=== PATIENT | female | born 1975 | race Hispanic/Latino ===

== ENCOUNTER → 2023-08-17 | Outpatient (CLI) | payer OTHER | END | disposition home or self-care (01) | LOC: RAH 14:44 | PROVIDERS: ATTEND Nurse Practitioner Adult Health | DX: E04.9 Nontoxic goiter, unspecified (principal) | CPT/HCPCS: 76536 ==

== ENCOUNTER → 2023-09-08 | Outpatient (CLI) | payer OTHER | END | disposition home or self-care (01) | LOC: RAH 11:37 | PROVIDERS: ATTEND Obstetrics & Gynecology | DX: Z12.31 Encounter for screening mammogram for malignant neoplasm of breast (principal) | CPT/HCPCS: 77067 ==

== ENCOUNTER → 2023-10-15 | Outpatient (CLI) | payer OTHER ==
[~2023-10-15] MED LIST: GADOTERATE MEGLUMINE 10 MMOL/20 ML VIAL IV ONE
== END | disposition home or self-care (01) ==
LOC: RAH 07:23
PROVIDERS: ATTEND Obstetrics & Gynecology
DX: N60.02 Solitary cyst of left breast (principal); N60.01 Solitary cyst of right breast; R92.343 Mammographic extreme density, bilateral breasts
CPT/HCPCS: 77049; A9575

== ENCOUNTER → 2023-11-17 | Outpatient (CLI) | payer OTHER ==
[2023-11-17 09:37] LABS: INR <= 0.93 (0.85-1.15); PROTHROMBIN TIME 10.8 SEC (9.6-11.6)
== END | disposition home or self-care (01) ==
LOC: RAH 08:28
PROVIDERS: ATTEND Obstetrics & Gynecology
DX: N60.01 Solitary cyst of right breast (principal); N60.02 Solitary cyst of left breast; N95.2 Postmenopausal atrophic vaginitis; N60.19 Diffuse cystic mastopathy of unspecified breast; N39.42 Incontinence without sensory awareness; R92.343 Mammographic extreme density, bilateral breasts; Z79.01 Long term (current) use of anticoagulants; Z79.899 Other long term (current) drug therapy; Z82.49 Family history of ischemic heart disease and other diseases of the circulatory system; Z83.42 Family history of familial hypercholesterolemia; Z82.3 Family history of stroke; Z98.890 Other specified postprocedural states; Z90.89 Acquired absence of other organs; Z90.710 Acquired absence of both cervix and uterus; Z79.890 Hormone replacement therapy
CPT/HCPCS: 19000; 19001; 36415; 85610; 85730; 88305; 88312

== ENCOUNTER → 2024-09-11 | Outpatient (CLI) | payer OTHER ==
--- NOTE | 2024-09-12 10:21 | HMCIMG ---
Exam Type: MAMMO SCREENING BILATERAL Clinical Information: ANNUAL SCREENING Comparison: August 21, 2023 Technique: Bilateral mammogram with CAD was performed with CC and MLO projections. FINDINGS: Breast parenchyma is heterogeneously dense which lowers the sensitivity of the mammographic examination. No dominant mass or suspicious microcalcification identified. There is no nipple retraction or skin thickening. Benign-appearing calcifications are seen. CAD shows no worrisome regions. IMPRESSION: 1. No mammographic signs of malignancy. 2. Routine follow-up recommended. CATEGORY 2: BENIGN FINDINGS Note: A negative x-ray should not delay biopsy if a dominant or clinically suspicious mass is present, since 8-10% of cancers are not identified by mammography. Dense breasts may obscure an underlying neoplasm.
== END | disposition home or self-care (01) ==
LOC: RAH 15:42
PROVIDERS: ATTEND Obstetrics & Gynecology
DX: Z12.31 Encounter for screening mammogram for malignant neoplasm of breast (principal); R92.333 Mammographic heterogeneous density, bilateral breasts
CPT/HCPCS: 77067

== ENCOUNTER → 2024-12-20 | Outpatient (CLI) | payer OTHER ==
[2024-12-20 07:04] LABS: BASOPHILS # (AUTO) 0.05 K/uL (0.00-0.20); BASOPHILS % (AUTO) 0.8 % (0.0-5.0); EOSINOPHILS # (AUTO) 0.14 K/uL (0.00-0.70); EOSINOPHILS % (AUTO) 2.3 % (0.0-8.0); HEMATOCRIT 38.7 % (36-48); IMMATURE GRANULOCYTE ABSOLUTE 0.01 K/uL (0-1); LYMPHOCYTES # (AUTO) 2.5 K/uL (1.0-4.8); LYMPHOCYTES % (AUTO) 40.6 % (21.0-51.0); MEAN CORPUSCULAR HEMOGLOBIN 26.2 pg (27.0-33.0); MEAN CORPUSCULAR HGB CONC 31.8 g/dL (32.0-36.0); MEAN CORPUSCULAR VOLUME 82.5 fL (79-99); MONOCYTES # (AUTO) 0.4 K/uL (0.1-1.0); MONOCYTES % (AUTO) 6.9 % (3.0-13.0); NEUTROPHILS % (AUTO) 49.2 % (40.0-77.0); PLATELET COUNT (AUTO) 307 K/uL (130-400); RED BLOOD CELL COUNT(AUTO) 4.69 MIL/uL (4.00-5.50); RED CELL DISTRIBUTION WIDTH 14.8 % (11.0-15.5); WHITE BLOOD COUNT (AUTO) 6.1 K/uL (4.8-10.8)
[2024-12-20 07:12] LABS: HEMOGLOBIN A1C 5.6 % (4.0-6.0)
[2024-12-20 07:26] LABS: ALBUMIN 4.3 g/dL (3.5-5.0); BILIRUBIN,TOTAL 0.2 mg/dL (0.2-1.0); CREATININE 0.8 mg/dL (0.5-1.0); POTASSIUM 4.2 mmol/L (3.5-5.1); THYROID STIMULATING HORMONE 0.93 uIU/mL (0.36-3.74)
== END | disposition home or self-care (01) ==
LOC: LAB 06:37
PROVIDERS: ATTEND Nurse Practitioner Adult Health
DX: E11.65 Type 2 diabetes mellitus with hyperglycemia (principal); E78.2 Mixed hyperlipidemia; R53.83 Other fatigue; E55.9 Vitamin D deficiency, unspecified; E03.8 Other specified hypothyroidism; Z00.00 Encounter for general adult medical examination without abnormal findings
CPT/HCPCS: 36415; 80053; 80061; 82306; 83036; 84443; 85025

== ENCOUNTER 2025-02-23 17:48 | Emergency (ER) | payer OTHER ==
[~2025-02-23] VITALS: Ht 154.9 cm; Wt 90.7 kg
[2025-02-23 17:49] VITALS: BP 160/75; PULSE 86; RESP 16; TEMP 98.8
[2025-02-23] MEDS ORDERED: CLIN-141 PO (18:14)
--- NOTE | 2025-02-23 18:14 | ERN ---
ED Note History of Present Illness Stated Complaint: BOIL TO RIGHT GROIN Chief Complaint: Abscess Time Seen by MD: 17:49 Time Seen by Midlevel: 17:49 Dictation: The patient is a 49-year-old female with a history of hypothyroidism who presents to the emergency department with complaints of wounds to pelvic area onset two weeks ago. Patient removed she has problem with ingrown hairs. Reports that one of the wounds burst at this morning. Patient denies any fevers Allergies: Coded Allergies: No Known Drug Allergies (Unverified Allergy, Unknown, 02/23/25) Home Meds Active Scripts Clindamycin HCl (Clindamycin HCl) 300 Mg Capsule, 1 CAP PO QID for 5 Days, #10 CAP 0 Refills Prov:TIM FITZGERALD KRISTAL 02/23/25 Past Medical History Past Medical History: Hypothyroid Surgical History: Other RN Note Reviewed/Agreed w/PFSH: Yes Review of System Dictation Constitutional: Negative for fever,chills, and weight loss Eyes: Negative for injury, pain,redness, and discharge ENT: Negative for injury,pain or swelling Cardiovascular: Negative for chest pain, palpitations, and edema Respiratory: Negative for shortness of breath, cough, and wheezing, Abdomen/GI: Negative for abdominal pain, nausea, vomiting, diarrhea, and constipation Back: Negative for injury and pain : Negative for injury, bleeding and discharge positive for pubic abscess MS/Extremity: Negative for injury and deformity Skin: Negative for rash, and discoloration Neuro: Negative for headache, weakness, numbness, tingling, and seizure Psych: Negative for suicide ideation, homicidal ideation, and hallucinations Initial Vital Sign VS Vital Signs Date Time Temp Pulse Resp B/P (MAP) Pulse Ox O2 Delivery O2 Flow Rate FiO2 02/23/25 17:49 98.8 86 16 160/75 96 Room Air 0 Physical Exam Dictation Vital Signs reviewed General Appearance: Alert, oriented x 3, no acute distress, well developed, nourished. Head and Face: non-traumatic. Eyes: PERRL, pink conjunctivas, eyelid no trauma, anterior chamber with arcus senilis. Ears: Pinnas intact and no signs of trauma or erythema ear canals clear and no discharge TM no erythema Nose: No discharge, no bleeding. Oropharynx: Mouth normal, tongue pink. pharynx clear,no erythema, tonsils no exudates, no abscesses noted, mucous membrane moist Neck: Supple, non-tender, no thyromegaly, no masses, no JVD, no bruits Breast:Deferred Chest:No tenderness, no crepitus, no paradoxical movement, no retractions Lungs:Clear, well-ventilated, symmetric, no rales, no wheezing, no rhonchi, no stridor, good breath sounds bilaterally Heart: Regular rate, regular rhythm, no murmur, no gallops Vascular: no peripheral edema, Abdomen: Soft, positive bowel sounds, nondistended, no guarding, nontender, no rebound, no masses no hepatomegaly, no splenomegaly, no Ramirez's sign, no hernias. Rectal: Deferred Genital: Three small less than 2 cm abscesses to pubic area, erythema, tender to touch Neurological: Normal speech, motor function intact, sensory function intact Musculoskeletal: Neck nontender, full range of motion, back nontender, full range of motion, Extremities: nontender, full range of motion Skin: Color pink, dry, no turgor, no rash, no lacerations, no abrasions, no contusions. Lymphatic: Deferred Results (Laboratory/Radiology) Labs Reviewed?: Yes ED Course ED Course Orders Procedure Category Date Status Time Lidocaine Hcl 1% 20ml PHA 02/23/25 Complete Vial (Lidocaine Hc 18:30 Clindamycin 150mg Cap PHA 02/23/25 Complete (Cleocin 150mg Cap 18:30 Current Medications Medications (Trade) Dose Ordered Sig/Arnel Route PRN Reason Start Time Stop Time Status Last Admin Dose Admin Clindamycin HCl (Cleocin 150mg Cap) 300 mg ONCE ONCE PO 02/23/25 18:30 02/23/25 18:28 DC 02/23/25 18:25 Lidocaine HCl (Lidocaine HCl 1% 20ml Vial) 10 ml ONCE INJ 02/23/25 18:30 02/23/25 18:28 DC 02/23/25 18:25 Vital Signs Date Time Temp Pulse Resp B/P (MAP) Pulse Ox O2 Delivery O2 Flow Rate FiO2 02/23/25 17:49 98.8 86 16 160/75 96 Room Air 0 Medical Decision Making MDM The patient is a 49-year-old female with a history of hypothyroidism who presents to the emergency department with complaints of wounds to pelvic area onset two weeks ago. Patient removed she has problem with ingrown hairs. Reports that one of the wounds burst at this morning. Patient denies any fevers Patient with three small less than 2 cm abscess to pubic area. Abscess were drained. Patient tolerated procedure well. Patient will be started on antibiotics and instructed to follow up with PCP. On physical exam patient is in no acute distress, stable vital signs, no fever. Differential diagnosis: Abscess, cellulitis, ingrown hair Need for hospitalization: Patient does not meet criteria for hospitalization. There are no social concerns with this patient. Procedure Blade Size: 11 I & D Procedure: no betadine prep Progress Verbal consent for the procedure was obtained. A timeout protocol was performed prior to initiating the procedure. The area was prepared and draped in the usua l, sterile manner. The site was anesthetized with 1% lidocaine without epinephrine. A small linear incision along the local skin lines was made and the purulent material expressed. The abscess was explored thoroughly and sequestered pockets were opened. Bleeding was minimal. The patient tolerated the procedure well without complications. Standard post- procedure care is explained and return precautions are given. DX & DISP Disposition: Discharge Departure Impression: Primary Impression: Abscess of pubic region Condition: Stable Scripts Clindamycin HCl (Clindamycin HCl) 300 Mg Capsule 1 CAP PO QID for 5 Days, #20 CAP 0 Refills Prov: TIM FITZGERALD PRICE CHANGER 02/23/25 Additional Instructions: Please take your medications as prescribed. Follow up with your primary doctor in 1-2 days. If anything worsens please return to ER. Do not go [place] any [place] until your wounds have completely healed. FOLLOW-UP WITH PRIMARY CARE PROVIDER IN 1 TO 2 DAYS. TAKE MEDICATIONS D IRECTED HERE IN THE EMERGENCY ROOM. OKAY TO CONTINUE HOME MEDICATIONS UNLESS OTHERWISE DISCUSSED DURING YOUR VISIT IN THE EMERGENCY ROOM TODAY. RETURN TO YOUR NEAREST EMERGENCY ROOM IF SYMPTOMS WORSEN OR IF THERE IS NO IMPROVEMENT. CALL 911 IF YOU NEED IMMEDIATE ASSISTANCE. TAKE TYLENOL [id number] NEEDED AND IF NO CONTRAINDICATIONS ARE PRESENT. INCREASE ORAL HYDRATION. A WOUND CULTURE OR URINE CULTURE WAS ORDERED HERE IN THE EMERGENCY ROOM DEPARTMENT PLEASE FOLLOW-UP WITH PRIMARY CARE PROVIDER AND ADVISE THEM TO GET REPEAT PORTS FROM OUR FACILITY. IF YOU HAD ANY MARLON WRAP/SPLINTS THAT WERE APPLIED HERE, PLEASE DO NOT REMOVE THEM UNTIL YOU SEE YOUR PRIMARY CARE OR SPECIALTY. Referrals: DITTBURNER,MELVI T FORESTRY PILOT (PCP) Time of Disposition: 18:14 I have reviewed the case, and I agree with, Diagnosis and Plan TIM FITZGERALD PRICE CHANGER Feb 23, 2025 18:14
[2025-02-23] MEDS: LIDOCAINE HCL 1% 20 ML VIAL INJ SCH (18:25)
[2025-02-23] MEDS: CLINDAMYCIN 150 MG CAP PO ONE (18:25)
== END 2025-02-23 18:28 | disposition home or self-care (01) ==
LOC: EDH 17:48
DX: K65.1 Peritoneal abscess (principal); E03.9 Hypothyroidism, unspecified
CPT/HCPCS: 10060; 99284